=== PATIENT | male | born 1940 | race Caucasian/White ===

== ENCOUNTER 2019-10-04 18:26 | Emergency (ER) | payer MEDICARE, OTHER ==
[~2019-10-04] VITALS: Ht 185.4 cm; Wt 84.1 kg
[2019-10-04] MEDS ORDERED: SOLI5 PO (19:53)
[2019-10-04] MEDS ORDERED: LOSA25TA41 PO (19:53)
[2019-10-04] MEDS ORDERED: TAMS-13 PO (19:53)
[2019-10-04] MEDS ORDERED: ATOR10TA84 PO (19:53)
[2019-10-04 23:00] VITALS: BP 144/82
== END 2019-10-04 23:35 | disposition home or self-care (01) ==
LOC: EMS 18:28
DX: M25.562 Pain in left knee (principal); Z79.899 Other long term (current) drug therapy
CPT/HCPCS: 85379